=== PATIENT | female | born 1995 | race American Indian/Alaskan Native ===

== ENCOUNTER 2017-02-16 18:42 | Emergency (ER) | payer OTHER ==
[~2017-02-16] VITALS: Ht 175.3 cm; Wt 135.2 kg
[~2017-02-16 18:42] MED LIST: BACTRIM DS TAB1 EACH PO; CLARITIN10 MG PO; GLIPIZIDE XL5 MG PO; PROZAC20 MG PO; VITAMIN D5000 UNIT PO
[2017-02-16] MEDS ORDERED: LANTUS100 UNITS/ SUB-Q (21:27)
== END 2017-02-16 21:37 | disposition home or self-care (01) ==
LOC: ED 18:42
DX: E11.65 Type 2 diabetes mellitus with hyperglycemia (principal); Z79.4 Long term (current) use of insulin; Z91.048 Other nonmedicinal substance allergy status; Z88.8 Allergy status to other drugs, medicaments and biological substances
CPT/HCPCS: 99283

== ENCOUNTER 2017-05-23 15:09 | Emergency (ER) | payer OTHER ==
[~2017-05-23] VITALS: Ht 175.3 cm; Wt 136.1 kg
[~2017-05-23 15:09] MED LIST changes: +LANTUS100 UNITS/ SUB-Q
[2017-05-23] MEDS ORDERED: VITAMIN D5000 UNI1 PO (16:04)
[2017-05-23] MEDS ORDERED: GLIPIZIDE5 MG PO (16:05)
== END 2017-05-23 16:55 | disposition home or self-care (01) ==
LOC: ED 15:09
DX: S06.0X0A Concussion without loss of consciousness, initial encounter (principal); F41.9 Anxiety disorder, unspecified; E11.9 Type 2 diabetes mellitus without complications; F90.9 Attention-deficit hyperactivity disorder, unspecified type; F43.10 Post-traumatic stress disorder, unspecified; W00.0XXA Fall on same level due to ice and snow, initial encounter; Z88.8 Allergy status to other drugs, medicaments and biological substances; Z79.4 Long term (current) use of insulin; Z79.899 Other long term (current) drug therapy
CPT/HCPCS: 99282

== ENCOUNTER 2019-01-15 11:59 | Emergency (ER) | payer OTHER ==
[~2019-01-15] VITALS: Ht 180.3 cm; Wt 133.8 kg
[~2019-01-15 11:59] MED LIST changes: +GLIPIZIDE5 MG PO; +MAGNESIUM500 MG PO; +PRINIVIL5 MG PO; +VITAMIN D5000 UNI1 PO
--- OUTSIDE RECORDS SUMMARY | 2019-01-15 12:02 | XMS ---
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 Arturo has no Care Guidelines for this patient. [facility] V[facility] (12 MO.) [facility] T[facility] NOTE: Visits indicate total known visits. ED[facility] TR[facility] (12 MO.) 01/15/2019 12:[address] 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
== END 2019-01-15 14:32 | disposition home or self-care (01) ==
LOC: ED 11:59
DX: F32.9 Major depressive disorder, single episode, unspecified (principal); E11.9 Type 2 diabetes mellitus without complications; F90.9 Attention-deficit hyperactivity disorder, unspecified type; F43.10 Post-traumatic stress disorder, unspecified; Z88.8 Allergy status to other drugs, medicaments and biological substances; Z91.048 Other nonmedicinal substance allergy status; Z79.899 Other long term (current) drug therapy
CPT/HCPCS: 80053; 80176; 81001; 84443; 84703; 85025; 99283; G0480

== ENCOUNTER 2019-01-22 09:24 | Emergency (ER) | payer OTHER ==
[~2019-01-22] VITALS: Ht 180.3 cm; Wt 133.8 kg
--- OUTSIDE RECORDS SUMMARY | 2019-01-22 09:28 | XMS ---
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 Care History Medical/Surgical 01/16/2019 [facility] \T\middot;\T\nbsp; PATIENT IS A [employer] MEMBER. \T\middot;\T\nbsp; PLEASE REFER PATIENT TO [facility] FOR NON EMERGENT MEDICAL NEEDS. \T\middot;\ T\nbsp; [facility] CAN SEE PATIENTS SAME DAY FOR APTS IF PATIENT CALLS FIRST THING IN THE MORNING. E.D. VISIT COUNT (12 MO.) 3 [facility]. TOTAL 3 NOTE: Visits indicate total known visits. ED/[facility] VISIT TRACKING (12 MO.) 01/22/2019 09:25 [facility] [place] TYPE: Emergency COMPLAINT: - MEDICAL CLEARANCE 01/15/2019 12:00 [facility] [place] TYPE: Emergency COMPLAINT: - MENTAL CRISIS DIAGNOSES: - Other long-term (current) drug therapy - Attention-deficit hyperactivity disorder, unspecified type - Allergy status to other drugs, medicaments and biological substances status - Type 2 diabetes mellitus without complications - Post-traumatic stress disorder, unspecified - Major depressive disorder, single episode, unspecified - Other nonmedicinal substance allergy status 12/24/2018 05:[address] 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
== END 2019-01-22 14:21 | disposition home or self-care (01) ==
LOC: ED 09:24
DX: F32.9 Major depressive disorder, single episode, unspecified (principal); E11.9 Type 2 diabetes mellitus without complications; F90.9 Attention-deficit hyperactivity disorder, unspecified type; F43.10 Post-traumatic stress disorder, unspecified; Z88.8 Allergy status to other drugs, medicaments and biological substances; Z91.018 Allergy to other foods; Z91.048 Other nonmedicinal substance allergy status; Z79.899 Other long term (current) drug therapy
CPT/HCPCS: 36415; 80053; 80176; 81001; 84443; 84703; 85025; 99284; G0480